=== PATIENT | female | born 1990 | race Caucasian/White ===

== ENCOUNTER 2024-05-24 17:16 | Emergency (ER) | payer SELFPAY ==
[~2024-05-24] VITALS: Ht 160 cm; Wt 70.0 kg
[2024-05-24 17:19] VITALS: BP 123/79; PULSE 101; RESP 18; TEMP 37.3; O2SAT 99
== END 2024-05-24 22:27 | disposition left against medical advice (07) ==
LOC: ER 18:06
DX: R51.9 Headache, unspecified (principal); Z53.21 Procedure and treatment not carried out due to patient leaving prior to being seen by health care provider